=== PATIENT | female | born 1990 ===

== ENCOUNTER 2019-10-01 18:05 | Emergency (ER) | payer OTHER ==
[2019-10-01] MEDS ORDERED: Morphine 4 MG/ML VIAL (1 ml) 4 MG/ML VIAL IV ONE (20:20)
[2019-10-01] MEDS ORDERED: Benzonatate CAP* 100 MG PO ONE (20:22)
[2019-10-01] MEDS ORDERED: Azithromycin TAB* 250 MG PO ONE (20:35)
--- NOTE | 2019-10-01 20:40 | ED ---
Respiratory - HPI Summary HPI Summary: Patient complains of headache and productive cough 1 week. Denies any other pain, injury or symptoms. - History of Current Complaint Chief Complaint: EDUpperRespComplaint Stated Complaint: COUGHING BLOOD PER PT Time Seen by Provider: 10/01/19 19:19 Hx Obtained From: Patient Onset/Duration: Gradual Onset, Lasting Days Initial Severity: Moderate Current Severity: Moderate Pain Intensity: 4 Character: Cough (Productive) Sputum Amount: Moderate Sputum Color: Yellow Aggravating Factor(s): Nothing Alleviating Factor(s): Nothing Associated Signs and Symptoms: Negative - Allergy/Home Medications Allergies/Adverse Reactions: Allergies Allergy/AdvReac Type Severity Reaction Status Date / Time No Known Allergies Allergy Verified 10/01/19 18:15 PMH/Surg Hx/FS Hx/Imm Hx Endocrine/Hematology History: Denies: Hx Anticoagulant Therapy Cardiovascular History: Denies: Hx Pacemaker/ICD History: Denies: Hx Dialysis Sensory History: Denies: Hx Eye Prosthesis Opthamlomology History: Denies: Hx Glaucoma EENT History: Denies: Hx Hearing Aid Neurological History: Denies: Hx Dementia Infectious Disease History: No Infectious Disease History: Denies: Traveled Outside the [place] in Last 30 Days - Family History Known Family History: Positive: Non-Contributory - Social History Alcohol Use: Rare Substance Use Type: Reports: None Smoking Status (MU): Never Smoked Tobacco Review of Systems Constitutional: Negative Eyes: Negative ENT: Negative Cardiovascular: Negative Positive: Cough Gastrointestinal: Negative Genitourinary: Negative Musculoskeletal: Negative Skin: Negative Positive: Headache Psychological: Normal All Other Systems Reviewed And Are Negative: Yes Physical Exam Triage Information Reviewed: Yes Vital Signs On Initial Exam: Initial Vitals Temp Pulse Resp BP Pulse Ox 99.3 F 112 18 135/84 100 10/01/19 18:13 10/01/19 18:13 10/01/19 18:13 10/01/19 18:13 10/01/19 18:13 Vital Signs Reviewed: Yes Appearance: Positive: Well-Appearing Skin: Positive: Warm Head/Face: Positive: Normal Head/Face Inspection Eyes: Positive: Normal Neck: Positive: Supple Respiratory/Lung Sounds: Positive: Clear to Auscultation Cardiovascular: Positive: Normal Abdomen Description: Positive: Nontender Musculoskeletal: Positive: Normal Neurological: Positive: Normal Psychiatric: Positive: Normal AVPU Assessment: Alert - [place] Coma Scale Best Eye Response: 4 - Spontaneous Best Motor Response: 6 - Obeys Commands Best Verbal Response: 5 - Oriented Coma Scale Total: 15 Procedures - Sedation Patient Received Moderate/Deep Sedation with Procedure: No Diagnostics - Vital Signs Vital Signs Temp Pulse Resp BP Pulse Ox 10/01/19 18:13 99.3 F 112 18 135/84 100 - Laboratory Lab Statement: Any lab studies that have been ordered have been reviewed, and results considered in the medical decision making process. Disposition - Course Course Of Treatment: Patient complains of headache and productive cough 1 week. Denies any other pain, injury or symptoms. Vital signs within normal limits. Chest x-ray unremarkable. - Diagnoses Provider Diagnoses: Cough, Headache Discharge ED - Sign-Out/Discharge Documenting (check all that apply): Patient Departure - Discharge Plan Condition: Stable Disposition: HOME Prescriptions: Azithromycin 250 mg PO DAILY 5 Days #6 tablet Benzonatate CAP* [Tessalon 100 MG CAP*] 200 mg PO TID 6 Days #40 cap guaiFENesin/CODIENE 100mg/10mg [Robitussin AC 100Mg/10Mg in 5 ml] 10 ml PO Q6H PRN 5 Days #50 udc MDD 20 mls PRN Reason: Cough Patient Education Materials: Upper Respiratory Infection (ED) Referrals: No Primary Care Phys,NOPCP [Primary Care Provider] - Additional Instructions: Take Tessalon as directed during the day for cough. Take Robitussin with codeine at night as directed for cough, if needed. Alternate ibuprofen 400 mg with Tylenol 650 mg every 3 hours as needed for headache. Follow-up with primary care. Return to the ED for any new or worsening symptoms. - Billing Disposition and Condition Condition: STABLE Disposition: Home
[2019-10-01 20:55] VITALS: BP 117/78
== END 2019-10-01 20:54 | disposition home or self-care (01) ==
LOC: ED 18:05
DX: R51 Headache (principal); R05 Cough
CPT/HCPCS: 71046; 99282; A9270-GY